=== PATIENT | male | born 1975 | race Hispanic/Latino ===

== ENCOUNTER 2017-12-03 13:00 | Emergency (ER) | payer SELFPAY ==
[2017-12-03] MEDS ORDERED: Ketorolac Tromethamine 30 MG/ML VIAL ONE (13:36)
[2017-12-03 13:53] LABS: Hemoglobin 14.2 g/dL (14.0-18.0); Mean Corpuscular HGB CONC 32.2 g/dL (32.0-36.0); Mean Corpuscular Hemoglobin 27.4 pg (27.0-31.0); Mean Corpuscular Volume 85.1 fL (78.0-98.0); Mean Platelet Volume 6.9 fL (7.4-10.4); Platelet Count 275 thou/uL (130-400); RBC Distribution Width 12.2 % (11.5-14.5); Red Blood Cell (RBC) Count 5.18 mill/uL (4.70-6.10); White Blood Cell (WBC) Count 10.1 thou/uL (4.8-10.8)
[2017-12-03 15:05] LABS: Band 13 % (5-11); Eosinophils 1 % (0-10); Lymphocytes 7 % (21-51); MDiff Complete? YES; Monocytes 6 % (0-10); Neutrophil 71 % (42-75); PLT Morphology Comment Appears Adequate; Reactive Lymphocytes 2 % (0-10)
--- NOTE | 2017-12-03 16:03 | RAD ---
RIGHT KNEE 4 VIEWS: Date: 12/03/17 HISTORY: Right knee pain. FINDINGS: Joint spaces are preserved. Mild tricompartment osteophytosis. No acute fracture, dislocation, or flu id distention of the suprapatellar bursa. IMPRESSION: Very mild degenerative changes. No acute osseous abnormalities are demonstrated. POS: [facility]
== END 2017-12-03 16:32 | disposition home or self-care (01) ==
LOC: ERS 13:00
DX: S80.01XA Contusion of right knee, initial encounter (principal); L03.115 Cellulitis of right lower limb; W22.8XXA Striking against or struck by other objects, initial encounter; Y92.69 Other specified industrial and construction area as the place of occurrence of the external cause
CPT/HCPCS: 85007; 85027; 85652; 86140; 96374; J1885